=== PATIENT | female | born 1995 | race Caucasian/White ===

== ENCOUNTER 2017-11-11 15:25 | Observation (INO) | payer OTHER ==
--- NOTE | 2017-11-11 19:40 | PCM.SN ---
- Free Text/Narrative Note: 193 S: Patient is a 22 y/o at 37 1/7 wks who presents for further monitoring. Was seen in clinic and reported contractions starting about 2 hours prior. Moderate in intensity. Made drive up difficult. In clinic was 2-3 cm dilated. Currently on L&D and still reports contractions as same frequency/intensity. O: Gen: NAD Ab: Soft, non tender Ext: No edema FHT: 135, moderate variability, + accelerations, no decelerations - negative spontaneous stress test TOCO: q2 A/P: Patient with frequent contractions, but stable SVE over several exams. Lives 1.5 hours away. Gave Rx for ambien and will discharge to local hotel. Will follow up in clinic tomorrow. Likely prodromal labor. Yaneth Goel
== END 2017-11-11 19:45 | disposition home or self-care (01) ==
LOC: JD.OBCHECK 15:25 → JD.OB 15:27 → JD.OBCHECK 17:28
PROVIDERS: ADMIT Obstetrics & Gynecology; ATTEND Obstetrics & Gynecology
DX: O47.03 False labor before 37 completed weeks of gestation, third trimester (principal); Z3A.37 37 weeks gestation of pregnancy; Z88.0 Allergy status to penicillin; Z88.1 Allergy status to other antibiotic agents; Z91.030 Bee allergy status
CPT/HCPCS: 59025

== ENCOUNTER 2017-11-12 09:06 | Inpatient (IN) | payer OTHER ==
[2017-11-12] MEDS ORDERED: Nalbuphine 20 MG/ML 1 ML Syringe IVPUSH PRN (09:15)
[2017-11-12] MEDS ORDERED: Oxytocin/Lactated Ringers 10 UNIT/1,000 ML BAG IV SCH (09:15)
[2017-11-12] MEDS ORDERED: Ondansetron 4 MG/2 ML SDV IVPUSH PRN ×2 (09:15→14:08)
[2017-11-12] MEDS ORDERED: Sodium Chloride 0.9% 10 ML Syringe FLUSH PRN (09:15)
--- NOTE | 2017-11-12 09:17 | PCM.LDHP ---
L&D History of Present Illness - General Date of Service: 11/12/17 Admit Problem/Dx: Patient Status Order with Admit Dx/Problem 11/12/17 09:16 Patient Status [ADT] Routine Admission Diagnosis/Problem Admission Diagnosis/Problem Normal labor Source of Information: Patient History Limitations: Reports: No Limitations - History of Present Illness Introduction:: Patient is a 22 y/o at 37 2/7 wks who presents in labor. Was seen in L&D last night and sent home in early labor. Came into clinic today with cervical change noted. - Related Data Allergies/Adverse Reactions: Allergies Allergy/AdvReac Type Severity Reaction Status Date / Time amoxicillin Allergy Severe Anaphylactic Verified 11/04/17 15:49 Shock azithromycin Allergy Severe Anaphylactic Verified 11/04/17 15:49 Shock cefpodoxime [From Vantin] Allergy Severe Anaphylactic Verified 11/04/17 15:49 Shock clindamycin Allergy Severe Anaphylactic Verified 11/04/17 15:49 Shock Penicillins Allergy Severe Anaphylactic Verified 11/04/17 15:49 Shock venom-honey bee Allergy Severe Anaphylactic Verified 11/04/17 15:49 Shock Latex, Natural Rubber Allergy Itching Verified 11/12/17 11:05 Home Medications: Home Meds EPINEPHrine [Epipen] 0.3 mg IM ASDIRECTED PRN 11/12/17 [History] UJO156/Iron Fumarate/FA/DSS [ 19 Tablet] 1 each PO DAILY 11/12/17 [ History] Past Medical History - Past Surgical History HEENT Surgical History: Reports: Oral Surgery (wisdom tooth) Social & Family History - Tobacco Use Smoking Status *Q: Never Smoker - Alcohol Use Alcohol Use History: No - Recreational Drug Use Recreational Drug Use: No Drug Use in Last 12 Months: No H&P Review of Systems - Review of Systems: Review Of Systems: See Below General: Reports: No Symptoms Pulmonary: Reports: No Symptoms Cardiovascular: Reports: No Symptoms Gastrointestinal: Reports: Abdominal Pain Genitourinary: Reports: No Symptoms Musculoskeletal: Reports: No Symptoms Neurological: Reports: No Symptoms L&D Exam - Exam Exam: See Below - OB Specific Contraction Intensity: Moderate Movement: Active Heart Tones: Present Heart Tones per Min: 140 Heart Rate (FHR) Variability: Moderate (6-25 bmp) Presentation: Vertex - Mcelroy Score Mcelroy Score Cervix Position: Midposition Mcelroy Score Consistency: Soft Mcelroy Score Effacement: >80% Mcelroy Score Dilation: 3-4 cm Mcelroy Score 's Station: -1 ,0 Mcelroy Score Total: 10 - Exam General: Alert, Oriented, Cooperative Lungs: Clear to Auscultation, Normal Respiratory Effort Cardiovascular: Regular Rate, Regular Rhythm GI/Abdominal Exam: Soft, Non-Tender Genitourinary: Normal external exam Extremities: Normal Inspection Skin: Warm, Dry, Intact - Patient Data Result Diagrams: 11/12/17 09:30 - Problem List (1) 37 weeks gestation of SNOMED Code(s): 00894107 ICD Code: Z3A.37 - 37 WEEKS GESTATION OF Status: Acute Current Visit: Yes (2) Normal labor SNOMED Code(s): 32581895 ICD Code: O80 - ENCOUNTER FOR FULL-TERM UNCOMPLICATED DELIVERY; Z37.9 - OUTCOME OF DELIVERY, UNSPECIFIED Status: Acute Current Visit: Yes (3) Chorioamnionitis SNOMED Code(s): 42589859 ICD Code: O41.1290 - CHORIOAMNIONITIS, UNSP TRIMESTER, NOT APPLICABLE OR UNSP Status: Acute Current Visit: Yes Qualifiers: Fetus number: single or unspecified fetus Trimester: third trimester Qualified Code(s): O41.1230 - Chorioamnionitis, third trimester, not applicable or unspecified Problem List Initiated/Reviewed/Updated: Yes Orders Last 24hrs: Active Orders 24 hr Category Date Time Status Patient Status [ADT] Routine ADT 11/12/17 09:16 Ordered Activity as Tolerated [RC] PFP Care 11/12/17 09:16 Ordered Communication Order [RC] ASDIRECTED Care 11/12/17 09:16 Ordered Heart Tones [RC] ASDIRECTED Care 11/12/17 09:16 Ordered Non Stress Test [RC] PER UNIT ROUTINE Care 11/12/17 09:16 Ordered Notify Provider [RC] PFP Care 11/12/17 09:16 Ordered Notify Provider [RC] PRN Care 11/12/17 09:16 Ordered Peripheral IV Care [RC] . DIRECTED Care 11/12/17 09:16 Ordered Vital Signs [RC] PER UNIT ROUTINE Care 11/12/17 09:15 Ordered Regular Diet [DIET] Diet 11/12/17 Breakfast Ordered CBC W/O DIFF,HEMOGRAM [HEME] Routine Lab 11/12/17 09:15 Ordered FIBRINOGEN [COAG] Routine Lab 11/12/17 09:15 Ordered INR,PT,PROTHROMBIN TIME [COAG] Routine Lab 11/12/17 09:15 Ordered PTT,PARTIAL THROMBOPLSTIN TIME [COAG] Routine Lab 11/12/17 09:15 Ordered RAPID PLASMA REAGIN,RPR [CHEM] Routine Lab 11/12/17 09:15 Ordered TYPE AND SCREEN [BBK] Routine Lab 11/12/17 09:15 Ordered Lactated Ringers [Ringers, Lactated] 1,000 ml Med 11/12/17 09:15 Ordered IV ASDIRECTED Nalbuphine [Nubain] Med 11/12/17 09:15 Ordered 10 mg IVPUSH Q2H PRN Ondansetron [Zofran] Med 11/12/17 09:15 Ordered 4 mg IVPUSH Q4H PRN Oxytocin/Lactated Ringers [Pitocin in LR 10 Units/1,000 Med 11/12/17 09:15 Ordered ML] 10 unit in 1,000 ml IV .CONTINUOUS Sodium Chloride 0.9% [Saline Flush] Med 11/12/17 09:15 Ordered 10 ml FLUSH ASDIRECTED PRN Electronic Heart Tones Ext w TOCO [WOMSER] Oth 11/12/17 09:16 Ordered Routine Electronic Heart Tones Internal [WOMSER] Per Unit Oth 11/12/17 09:16 Ordered Routine Peripheral IV Insertion Adult [OM.PC] Routine Oth 11/12/17 09:16 Ordered Resuscitation Status Routine Resus Stat 11/12/17 09:15 Ordered Assessment/Plan Comment:: 22 y/o at 37 2/7 wks presents in labor * CBC, RPR, T&S * GBS negative, no need for antibiotics * Pain management per patient preference * Anticipate
--- NOTE | 2017-11-12 11:58 | PCM.PNLD ---
Labor Progress Note - VS & Meds Vital Signs: Last Vital Signs Temp 36.8 C 11/12/17 09:15 Pulse 91 11/12/17 09:15 Resp 16 11/12/17 09:15 BP 110/71 11/12/17 09:15 Pulse Ox 100 11/12/17 09:15 Active Medications: Current Medications Lactated Ringer's (Ringers, Lactated) 1,000 mls @ 100 mls/hr IV ASDIRECTED AGGIE Oxytocin/Lactated Ringer's (Pitocin In Lr 10 Units/1,000 Ml) 10 unit in 1,000 mls @ 500 mls/hr IV .CONTINUOUS AGGIE Nalbuphine HCl (Nubain) 10 mg IVPUSH Q2H PRN PRN Reason: pain Ondansetron HCl (Zofran) 4 mg IVPUSH Q4H PRN PRN Reason: Nausea/Vomiting Sodium Chloride (Saline Flush) 10 ml FLUSH ASDIRECTED PRN PRN Reason: Keep Vein Open - Uterine Contractions Uterine Monitoring Mode: External [place] Contraction Intensity: Moderate Uterine Resting Tone: Soft - Monitoring Monitor Mode: External Ultrasound Heart Rate (FHR) Baseline: 150 Heart Rate (FHR) Variability: Moderate (6-25 bmp) Accelerations: Present, 15x15 Decelerations: None Strip Review: Category I - Vaginal Exam Dilation (cm): 4 Effacement (Percent): 80 Station: 0 Cervical Position: Midposition - Labor Progress (Free Text) Labor Progress: Doing well. Contractions stable as far as degree of discomfort. AROM performed. Continue present management
[2017-11-12] MEDS: Lactated Ringers 1,000 ML IV SCH ×4 (13:54→17:04)
[2017-11-12] MEDS ORDERED: fentaNYL 100 MCG/2 ML SDV EPIDUR PRN (14:08)
[2017-11-12] MEDS ORDERED: diphenhydrAMINE 50 MG/ML SDV IVPUSH PRN (14:08)
[2017-11-12] MEDS ORDERED: ePHEDrine 50 MG/ML SDV IVPUSH PRN (14:08)
--- NOTE | 2017-11-12 14:10 | PCM.PREANE ---
Preanesthetic Assessment - Anesthesia/Transfusion/Family Hx Anesthesia History: Prior Anesthesia Without Reaction Family History of Anesthesia Reaction: No Transfusion History: No Prior Transfusion(s) Intubation History: Unknown - Review of Systems Pulmonary: Cough Cardiovascular: No Symptoms Gastrointestinal: No Symptoms (GERD) Neurological: Headache (Migraines) Other: Reports: Sinus Problem (sinus congestion) - Physical Assessment NPO Status Date: 11/12/17 NPO Status Time: 14:30 Pulse: 91 O2 Sat by Pulse Oximetry: 100 Respiratory Rate: 16 Blood Pressure: 110/71 Temperature: 2.7 C Vital Signs: Last Vital Signs Temp 36.8 C 11/12/17 09:15 Pulse 91 11/12/17 09:15 Resp 16 11/12/17 09:15 BP 110/71 11/12/17 09:15 Pulse Ox 100 11/12/17 09:15 Height: 1.63 m Weight: 65.771 kg ASA Class: 2 Mental Status: Alert & Oriented x3 Airway Class: Mallampati = 2 Dentition: Reports: Normal Dentition, Caries Thyro-Mental Finger Breadths: 3 Mouth Opening Finger Breadths: 3 ROM/Head Extension: Full Lungs: Clear to Auscultation, Normal Respiratory Effort Cardiovascular: Regular Rate, Regular Rhythm, No Murmurs - Lab Values: Laboratory Last Values WBC 13.73 K/mm3 (3.98-10.04) H 11/12/17 09:30 RBC 4.12 M/mm3 (3.98-5.22) 11/12/17 09:30 Hgb 12.9 gm/L (11.2-15.7) 11/12/17 09:30 Hct 38.1 % (34.1-44.9) 11/12/17 09:30 MCV 92.5 fl (79.4-94.8) 11/12/17 09:30 MCH 31.3 pg (25.6-32.2) 11/12/17 09:30 MCHC 33.9 g/dl (32.2-35.5) 11/12/17 09:30 RDW Std Deviation 41.0 fL (36.4-46.3) 11/12/17 09:30 Plt Count 223 K/mm3 (182-369) 11/12/17 09:30 MPV 11.0 fl (9.4-12.3) 11/12/17 09:30 PT 10.0 SECONDS (9.5-12.1) 11/12/17 09:30 INR < 0.93 11/12/17 09:30 APTT 27 SECONDS (24-31) 11/12/17 09:30 Fibrinogen 561 mg/dL (187-446) H 11/12/17 09:30 RPR Non-reactive (NONREACTIVE) 11/12/17 09:30 Blood Type A POSITIVE 11/12/17 09:30 Gel Antibody Screen Negative 11/12/17 09:30 Above labs reviewed and noted and within acceptable ranges to proceed with epidural. - Allergies Allergies/Adverse Reactions: Allergies Allergy/AdvReac Type Severity Reaction Status Date / Time amoxicillin Allergy Severe Anaphylactic Verified 11/04/17 15:49 Shock azithromycin Allergy Severe Anaphylactic Verified 11/04/17 15:49 Shock cefpodoxime [From Vantin] Allergy Severe Anaphylactic Verified 11/04/17 15:49 Shock clindamycin Allergy Severe Anaphylactic Verified 11/04/17 15:49 Shock Penicillins Allergy Severe Anaphylactic Verified 11/04/17 15:49 Shock venom-honey bee Allergy Severe Anaphylactic Verified 11/04/17 15:49 Shock Latex, Natural Rubber Allergy Itching Verified 11/12/17 11:05 - Anesthesia Plan Pre-Op Medication Ordered: None - Acknowledgements Anesthesia Type Planned: Epidural Pt an Appropriate Candidate for the Planned Anesthesia: Yes Alternatives and Risks of Anesthesia Discussed w Pt/Guardian: Yes Pt/Guardian Understands and Agrees with Anesthesia Plan: Yes PreAnesthesia Questionnaire - Past Health History Medical/Surgical History: Denies Medical/Surgical History - Past Surgical History HEENT Surgical History: Reports: Oral Surgery Other HEENT Surgeries/Procedures: wisdom teeth extraction - SUBSTANCE USE Smoking Status *Q: Never Smoker Tobacco Use Within Last Twelve Months: No Second Hand Smoke Exposure: No Recreational Drug Use History: No - HOME MEDS Home Medications: Home Meds EPINEPHrine [Epipen] 0.3 mg IM ASDIRECTED PRN 11/12/17 [History] [id number]/Iron Fumarate/FA/DSS [ 19 Tablet] 1 each PO DAILY 11/12/17 [ History] - CURRENT (IN HOUSE) MEDS Current Meds: Current Medications Diphenhydramine HCl (Benadryl) 25 mg IVPUSH Q6H PRN PRN Reason: pruritis Ephedrine Sulfate (Ephedrine Sulfate) 5 mg IVPUSH ASDIRECTED PRN PRN Reason: Hypotension Fentanyl (Sublimaze) 100 mcg EPIDUR Q3H PRN PRN Reason: Pain Fentanyl/Bupivacaine HCl (Fentanyl/Bupivacaine/Ns 2 Mcg-0.125% 100 Ml) 100 ml EPIDUR ASDIRECTED AGGIE Lactated Ringer's (Ringers, Lactated) 1,000 mls @ 100 mls/hr IV ASDIRECTED [facility] Last Admin: 11/12/17 13:54 Dose: 999 mls/hr Oxytocin/Lactated Ringer's (Pitocin In Lr 10 Units/1,000 Ml) 10 unit in 1,000 mls @ 500 mls/hr IV .CONTINUOUS [facility] Nalbuphine HCl (Nubain) 10 mg IVPUSH Q2H PRN PRN Reason: pain Ondansetron HCl (Zofran) 4 mg IVPUSH Q4H PRN PRN Reason: Nausea/Vomiting Ondansetron HCl (Zofran) 4 mg IVPUSH ONETIME PRN PRN Reason: Nausea/Vomiting Sodium Chloride (Saline Flush) 10 ml FLUSH ASDIRECTED PRN PRN Reason: Keep Vein Open
[2017-11-12] MEDS ORDERED: fentaNYL 100 MCG/2 ML SDV ONE (14:13)
[2017-11-12] MEDS ORDERED: Bupivacaine/fentaNYL/NS 100 ML Bag EPIDUR SCH (14:15)
--- NOTE | 2017-11-12 16:54 | PCM.PNLD ---
Labor Progress Note - VS & Meds Vital Signs: Last Vital Signs Temp 2.7 C L 11/12/17 14:29 Pulse 91 11/12/17 14:29 Resp 16 11/12/17 14:29 BP 110/71 11/12/17 14:29 Pulse Ox 100 11/12/17 14:29 Active Medications: Current Medications Diphenhydramine HCl (Benadryl) 25 mg IVPUSH Q6H PRN PRN Reason: pruritis Ephedrine Sulfate (Ephedrine Sulfate) 5 mg IVPUSH ASDIRECTED PRN PRN Reason: Hypotension Fentanyl (Sublimaze) 100 mcg EPIDUR Q3H PRN PRN Reason: Pain Last Admin: 11/12/17 14:23 Dose: 100 mcg Fentanyl/Bupivacaine HCl (Fentanyl/Bupivacaine/Ns 2 Mcg-0.125% 100 Ml) 100 ml EPIDUR ASDIRECTED AGGIE Last Admin: 11/12/17 14:23 Dose: 100 ml Lactated Ringer's (Ringers, Lactated) 1,000 mls @ 100 mls/hr IV ASDIRECTED [facility] Last Admin: 11/12/17 15:14 Dose: 999 mls/hr Oxytocin/Lactated Ringer's (Pitocin In Lr 10 Units/1,000 Ml) 10 unit in 1,000 mls @ 500 mls/hr IV .CONTINUOUS [facility] Nalbuphine HCl (Nubain) 10 mg IVPUSH Q2H PRN PRN Reason: pain Ondansetron HCl (Zofran) 4 mg IVPUSH Q4H PRN PRN Reason: Nausea/Vomiting Ondansetron HCl (Zofran) 4 mg IVPUSH ONETIME PRN PRN Reason: Nausea/Vomiting Sodium Chloride (Saline Flush) 10 ml FLUSH ASDIRECTED PRN PRN Reason: Keep Vein Open Discontinued Medications Fentanyl (Sublimaze) Confirm Administered Dose 100 mcg .ROUTE .STK-MED ONE Stop: 11/12/17 14:14 - Uterine Contractions Uterine Monitoring Mode: External [place] Contraction Intensity: Moderate Uterine Resting Tone: Soft - Monitoring Monitor Mode: External Ultrasound Heart Rate (FHR) Baseline: 135 Heart Rate (FHR) Variability: Moderate (6-25 bmp) Accelerations: Present, 15x15 Decelerations: Variable Strip Review: Category II - Vaginal Exam Dilation (cm): 5-6 Effacement (Percent): 80 Station: 1 Cervical Position: Anterior - Labor Progress (Free Text) Labor Progress: Doing well. Comfortable with epidural. Nursing thought patient was 4-5 at 1500. Now 5-6. Contractions are q3 minutes. IUPC placed to aid in monitoring contractions.
[2017-11-12] MEDS ORDERED: Acetaminophen 325 MG Tab PO ONE (19:41)
[2017-11-12] MEDS ORDERED: SODIUM CHLORIDE 0.9% IV ONE (19:49)
[2017-11-12] MEDS ORDERED: GENTAMICIN IV ONE (19:49)
[2017-11-12] MEDS ORDERED: Sodium Chloride 0.9% 100 ML ONE (19:52)
[2017-11-12] MEDS ORDERED: Gentamicin 40 MG/ML 2 ML Vial ONE (19:52)
[2017-11-12] MEDS ORDERED: Water For Injection, Sterile 10 ML SDV ONE ×2 (20:26→20:28)
--- NOTE | 2017-11-12 21:19 | PCM.DEL ---
L & D Note - General Info Date of Service: 11/12/17 - Delivery Note Labor: Augmented by ARM Delivery Outcome: Livebirth Delivery Method: Spontaneous Vaginal Delivery-Single Infant Delivery Mode: Vacuum Extraction Presentation: Right Occiput Anterior (KEIRY) Nuchal Cord: None Anesthesia Type: Epidural Amniotic Fluid Description: Clear Episiotomy Type: None Laceration: 2nd Degree, Periurethral Suture type: Vicryl Suture size: 2-0 Placenta: Intact, Spontaneous Cord: 3 Vessels Estimated Blood Loss: 300 Resuscitation Needed: Yes [place]: Bulb Syringe, Stimulated, Warmed, [place] Used, Warmer Used Score 1 min: 8 Score 5 min: 9 Delivery Comments (Free Text/Narrative):: The patient was found to be complete and began pushing. During this time frame she developed a fever and tachycardia consistent with chorioamnionitis. She was started on Gentamicin and Vancomycin for this concern. With pushing fetus and with deceleration into the 80's from 180. Given concern for compromise the decision was made to proceed with vacuum assisted vaginal delivery. The mushroom cup was placed without difficulty . Subsequent vacuum assisted vaginal delivery with pushing. Total pressure applied 550 mmHg for less than 20 seconds. Total pop offs 0. Suction was removed following delivery of the head. No nuchal cord. The remainder of the infant delivered without difficulty. The umbilical cord was clamped and cut and the was placed on maternal abdomen. Placenta allowed time to separate and expelled intact. Inspection of the perineum following delivery with a 2nd degree perineal laceration which was repaired with a 2-0 vicryl in the typical fashion . There was also a left sided periurethral tear which was repaired with a 3-0 vicryl in an interrupted fashion. Vacuum Extractor Progress Note - Alternative Labor Strategies Considered Alternative Labor Strategies Considered:: Reports: Yes Strategies Considered:: Reports: Contraction Intensity Adequate Indications Considered:: Reports: Yes Indications:: Reports: Suspicion of Immediate or Potential Compromise Time Out:: Reports: Yes - Patient Prepared Patient Prepared:: Reports: Yes Informed Consent:: Reports: Verbal Risks: Reports: Yes Risks Include:: Reports: Laceration, Shoulder Dystocia, Maternal Injury Anesthesia/Analgesia Adequate:: Reports: Yes - Probability of Success High Probability of Success:: Reports: Yes Weight Estimated:: Reports: AGA Patient Diabetic:: Reports: No Pelvis Adequate:: Reports: Yes Asynclitic:: Reports: No - Application Time Maximum Application Time & Number of Pop-Offs Predetermined:: Reports: Yes Maximum Pressure Maintained in [place] (cm Hg):: 550 Total Application Time (min): *max=20min: 1 (< 20 seconds) Number of Times Cup Disengaged:: 0 Type of Vacuum Used:: Reports: Cup: Mushroom type Vacuum Extraction: Successful - Exit Strategy Exit strategy available:: Reports: Yes and resuscitation teams readily available:: Reports: Yes - General Info Date of Service: 11/13/17 - Patient Data Vitals - Most Recent: Last Vital Signs Temp 38.3 C H 11/12/17 20:07 Pulse 91 11/12/17 14:29 Resp 16 11/12/17 14:29 BP 110/71 11/12/17 14:29 Pulse Ox 100 11/12/17 14:29 Weight - Most Recent: 65.771 kg I&O - Last 24 Hours: Intake & Output 11/12/17 11/12/17 11/12/17 06:59 14:59 22:59 Intake Total 240 4000 Output Total 1300 Balance 240 2700 Lab Results Last 24 Hours: Laboratory Results - last 24 hr 11/12/17 11/12/17 11/12/17 Range/Units 09:30 09:30 09:30 WBC 13.73 H (3.98-10.04) K/mm3 RBC 4.12 (3.98-5.22) M/mm3 Hgb 12.9 (11.2-15.7) gm/L Hct 38.1 (34.1-44.9) % MCV 92.5 (79.4-94.8) fl MCH 31.3 (25.6-32.2) pg MCHC 33.9 (32.2-35.5) g/dl RDW Std Deviation 41.0 (36.4-46.3) fL Plt Count 223 (182-369) K/mm3 MPV 11.0 (9.4-12.3) fl PT 10.0 (9.5-12.1) SECONDS INR < 0.93 APTT 27 (24-31) SECONDS Fibrinogen 561 H (187-446) mg/dL RPR Non-reactive (NONREACTIVE) Blood Type Gel Antibody Screen 11/12/17 Range/Units 09:30 WBC (3.98-10.04) K/mm3 RBC (3.98-5.22) M/mm3 Hgb (11.2-15.7) gm/L Hct (34.1-44.9) % MCV (79.4-94.8) fl MCH (25.6-32.2) pg MCHC (32.2-35.5) g/dl RDW Std Deviation (36.4-46.3) fL Plt Count (182-369) K/mm3 MPV (9.4-12.3) fl PT (9.5-12.1) SECONDS INR APTT (24-31) SECONDS Fibrinogen (187-446) mg/dL RPR (NONREACTIVE) Blood Type A POSITIVE Gel Antibody Screen Negative Med Orders - Current: Current Medications Diphenhydramine HCl (Benadryl) 25 mg IVPUSH Q6H PRN PRN Reason: pruritis Ephedrine Sulfate (Ephedrine Sulfate) 5 mg IVPUSH ASDIRECTED PRN PRN Reason: Hypotension Fentanyl (Sublimaze) 100 mcg EPIDUR Q3H PRN PRN Reason: Pain Last Admin: 11/12/17 14:23 Dose: 100 mcg Fentanyl/Bupivacaine HCl (Fentanyl/Bupivacaine/Ns 2 Mcg-0.125% 100 Ml) 100 ml EPIDUR ASDIRECTED [facility] Last Admin: 11/12/17 14:23 Dose: 100 ml Lactated Ringer's (Ringers, Lactated) 1,000 mls @ 100 mls/hr IV ASDIRECTED [facility] Last Admin: 11/12/17 17:04 Dose: 500 mls/hr Oxytocin/Lactated Ringer's (Pitocin In Lr 10 Units/1,000 Ml) 10 unit in 1,000 mls @ 500 mls/hr IV .CONTINUOUS AGGIE Nalbuphine HCl (Nubain) 10 mg IVPUSH Q2H PRN PRN Reason: pain Ondansetron HCl (Zofran) 4 mg IVPUSH Q4H PRN PRN Reason: Nausea/Vomiting Ondansetron HCl (Zofran) 4 mg IVPUSH ONETIME PRN PRN Reason: Nausea/Vomiting Sodium Chloride (Saline Flush) 10 ml FLUSH ASDIRECTED PRN PRN Reason: Keep Vein Open Discontinued Medications Acetaminophen (Tylenol) 975 mg PO NOW ONE Stop: 11/12/17 19:42 Last Admin: 11/12/17 20:07 Dose: 975 mg Fentanyl (Sublimaze) Confirm Administered Dose 100 mcg .ROUTE .STK-MED ONE Stop: 11/12/17 14:14 Last Admin: 11/12/17 19:11 Dose: Not Given Gentamicin Sulfate (Gentamicin) Confirm Administered Dose 400 mg .ROUTE .STK- MED ONE Stop: 11/12/17 19:53 Last Admin: 11/12/17 20:09 Dose: Not Given Gentamicin Sulfate 325 mg/ (Sodium Chloride) 108.125 mls @ 200 mls/hr IV ONETIME ONE Stop: 11/12/17 20:18 Last Admin: 11/12/17 20:07 Dose: 200 mls/hr Vancomycin HCl 1 gm/ Sodium (Chloride) 250 mls @ 250 mls/hr IV ONETIME ONE Stop: 11/12/17 20:49 Last Admin: 11/12/17 20:43 Dose: 250 mls/hr Sodium Chloride (Normal Saline) Confirm Administered Dose 100 mls @ as directed .ROUTE .STK-MED ONE Stop: 11/12/17 19:53 Sterile Water (Sterile Water For Injection) Confirm Administered Dose 10 ml .ROUTE .STK-MED ONE Stop: 11/12/17 20:27 Sterile Water (Sterile Water For Injection) Confirm Administered Dose 10 ml .ROUTE .STK-MED ONE Stop: 11/12/17 20:29 - Problem List & Annotations (1) 37 weeks gestation of SNOMED Code(s): 31004715 Code(s): Z3A.37 - 37 WEEKS GESTATION OF Status: Acute Current Visit: Yes (2) Chorioamnionitis SNOMED Code(s): 59226287 Code(s): O41.1290 - CHORIOAMNIONITIS, UNSP TRIMESTER, NOT APPLICABLE OR UNSP Status: Acute Current Visit: Yes Qualifiers: Fetus number: single or unspecified fetus Trimester: third trimester Qualified Code(s): O41.1230 - Chorioamnionitis, third trimester, not applicable or unspecified (3) Normal labor SNOMED Code(s): 58802977 Code(s): O80 - ENCOUNTER FOR FULL-TERM UNCOMPLICATED DELIVERY; Z37.9 - OUTCOME OF DELIVERY, UNSPECIFIED Status: Acute Current Visit: Yes (4) Vacuum extraction, delivered, current hospitalization SNOMED Code(s): 058296215 Code(s): O66.5 - ATTEMPTED APPLICATION OF VACUUM EXTRACTOR AND FORCEPS Status: Acute Current Visit: Yes - Problem List Review Problem List Initiated/Reviewed/Updated: Yes - My Orders Last 24 Hours: My Active Orders 11/12/17 09:15 Vital Signs [RC] 09,15,21,03 Lactated Ringers [Ringers, Lactated] 1,000 ml IV ASDIRECTED Nalbuphine [Nubain] 10 mg IVPUSH Q2H PRN Ondansetron [Zofran] 4 mg IVPUSH Q4H PRN Oxytocin/Lactated Ringers [Pitocin in LR 10 Units/1,000 ML] 10 unit in 1,000 ml IV .CONTINUOUS Sodium Chloride 0.9% [Saline Flush] 10 ml FLUSH ASDIRECTED PRN Resuscitation Status Routine 11/12/17 09:16 Patient Status [ADT] Routine Activity as Tolerated [RC] PFP Communication Order [RC] ASDIRECTED Heart Tones [RC] ASDIRECTED Notify Provider [RC] PFP Notify Provider [RC] PRN Electronic Heart Tones Ext w TOCO [WOMSER] Routine Electronic Heart Tones Internal [WOMSER] Per Unit Routine Peripheral IV Insertion Adult [OM.PC] Routine 11/12/17 09:30 PATIENT RETYPE [BBK] Routine TYPE AND SCREEN [BBK] Routine 11/12/17 Breakfast Regular Diet [DIET] - Assessment Assessment:: 22 y/o PPD#0 from [facility] - Plan Plan:: * S/p Gent and Vanc in labor. No further antibiotics required * Routine cares * Encourage breast feeding * Discharge home in 2 days
[2017-11-12] MEDS ORDERED: Bupivacaine 0.25% 10 ML SDV ONE (22:00)
[2017-11-12] MEDS ORDERED: Lanolin 100% Cream 7 GM Tube TOP PRN (22:24)
[2017-11-12] MEDS ORDERED: Acetaminophen 325 MG Tab PO PRN (22:24)
[2017-11-12] MEDS ORDERED: Docusate Sodium 100 MG Cap PO PRN (22:24)
[2017-11-12] MEDS ORDERED: Witch Hazel Medicated Pads 100/Jar TOP PRN (22:24)
[2017-11-12] MEDS ORDERED: Benzocaine/Menthol 20%-0.5% Spray 56 GM Canister TOP PRN (22:24)
--- NOTE | 2017-11-13 07:26 | PCM.PNPP ---
- General Info Date of Service: 11/13/17 Functional Status: Reports: Pain Controlled, Tolerating Diet, Ambulating, Urinating - Review of Systems General: Reports: No Symptoms Pulmonary: Reports: No Symptoms Cardiovascular: Reports: No Symptoms Gastrointestinal: Reports: No Symptoms Genitourinary: Reports: No Symptoms Musculoskeletal: Reports: No Symptoms Neurological: Reports: No Symptoms - Patient Data Vital Signs - Most Recent: Last Vital Signs Temp 37.1 C 11/12/17 23:31 Pulse 74 11/12/17 23:31 Resp 16 11/12/17 23:31 BP 102/76 11/12/17 23:31 Pulse Ox 98 11/12/17 23:31 Weight - Most Recent: 65.771 kg I&O - Last 24 Hours: Intake & Output 11/12/17 11/13/17 11/13/17 22:59 06:59 14:59 Intake Total 4000 1350 Output Total 1650 Balance 2350 1350 Lab Results - Last 24 Hours: Laboratory Results - last 24 hr 11/12/17 11/12/17 11/12/17 Range/Units 09:30 09:30 09:30 WBC 13.73 H (3.98-10.04) K/mm3 RBC 4.12 (3.98-5.22) M/mm3 Hgb 12.9 (11.2-15.7) gm/L Hct 38.1 (34.1-44.9) % MCV 92.5 (79.4-94.8) fl MCH 31.3 (25.6-32.2) pg MCHC 33.9 (32.2-35.5) g/dl RDW Std Deviation 41.0 (36.4-46.3) fL Plt Count 223 (182-369) K/mm3 MPV 11.0 (9.4-12.3) fl PT 10.0 (9.5-12.1) SECONDS INR < 0.93 APTT 27 (24-31) SECONDS Fibrinogen 561 H (187-446) mg/dL RPR Non-reactive (NONREACTIVE) Blood Type Gel Antibody Screen 11/12/17 Range/Units 09:30 WBC (3.98-10.04) K/mm3 RBC (3.98-5.22) M/mm3 Hgb (11.2-15.7) gm/L Hct (34.1-44.9) % MCV (79.4-94.8) fl MCH (25.6-32.2) pg MCHC (32.2-35.5) g/dl RDW Std Deviation (36.4-46.3) fL Plt Count (182-369) K/mm3 MPV (9.4-12.3) fl PT (9.5-12.1) SECONDS INR APTT (24-31) SECONDS Fibrinogen (187-446) mg/dL RPR (NONREACTIVE) Blood Type A POSITIVE Gel Antibody Screen Negative Med Orders - Current: Current Medications Acetaminophen (Tylenol) 650 mg PO Q4H PRN PRN Reason: mild pain or fever Benzocaine/Menthol (Dermoplast Pain Relief [place]) 0 gm TOP ASDIRECTED PRN PRN Reason: Perineal Comfort Measure Docusate Sodium (Colace) 100 mg PO BID PRN PRN Reason: Constipation Emollient Ointment (Lansinoh Hpa) 0 gm TOP ASDIRECTED PRN PRN Reason: Sore Nipples Ibuprofen (Motrin) 600 mg PO Q6H PRN PRN Reason: Mild pain or fever Witch Beryl (Tucks) 1 pad TOP ASDIRECTED PRN PRN Reason: Hemorrhoid pain Discontinued Medications Acetaminophen (Tylenol) 975 mg PO NOW ONE Stop: 11/12/17 19:42 Last Admin: 11/12/17 20:07 Dose: 975 mg Diphenhydramine HCl (Benadryl) 25 mg IVPUSH Q6H PRN PRN Reason: pruritis Ephedrine Sulfate (Ephedrine Sulfate) 5 mg IVPUSH ASDIRECTED PRN PRN Reason: Hypotension Fentanyl (Sublimaze) 100 mcg EPIDUR Q3H PRN PRN Reason: Pain Last Admin: 11/12/17 14:23 Dose: 100 mcg Fentanyl (Sublimaze) Confirm Administered Dose 100 mcg .ROUTE .STK-MED ONE Stop: 11/12/17 14:14 Last Admin: 11/12/17 19:11 Dose: Not Given Fentanyl/Bupivacaine HCl (Fentanyl/Bupivacaine/Ns 2 Mcg-0.125% 100 Ml) 100 ml EPIDUR ASDIRECTED AGGIE Last Admin: 11/12/17 14:23 Dose: 100 ml Gentamicin Sulfate (Gentamicin) Confirm Administered Dose 400 mg .ROUTE .STK- MED ONE Stop: 11/12/17 19:53 Last Admin: 11/12/17 20:09 Dose: Not Given Lactated Ringer's (Ringers, Lactated) 1,000 mls @ 100 mls/hr IV ASDIRECTED AGGIE Last Admin: 11/12/17 17:04 Dose: 500 mls/hr Oxytocin/Lactated Ringer's (Pitocin In Lr 10 Units/1,000 Ml) 10 unit in 1,000 mls @ 500 mls/hr IV .CONTINUOUS AGGIE Last Admin: 11/12/17 20:57 Dose: 500 mls/hr Gentamicin Sulfate 325 mg/ (Sodium Chloride) 108.125 mls @ 200 mls/hr IV ONETIME ONE Stop: 11/12/17 20:18 Last Admin: 11/12/17 20:07 Dose: 200 mls/hr Vancomycin HCl 1 gm/ Sodium (Chloride) 250 mls @ 250 mls/hr IV ONETIME ONE Stop: 11/12/17 20:49 Last Admin: 11/12/17 20:43 Dose: 250 mls/hr Sodium Chloride (Normal Saline) Confirm Administered Dose 100 mls @ as directed .ROUTE .STK-MED ONE Stop: 11/12/17 19:53 Last Admin: 11/13/17 00:56 Dose: Not Given Nalbuphine HCl (Nubain) 10 mg IVPUSH Q2H PRN PRN Reason: pain Ondansetron HCl (Zofran) 4 mg IVPUSH Q4H PRN PRN Reason: Nausea/Vomiting Ondansetron HCl (Zofran) 4 mg IVPUSH ONETIME PRN PRN Reason: Nausea/Vomiting Sodium Chloride (Saline Flush) 10 ml FLUSH ASDIRECTED PRN PRN Reason: Keep Vein Open Sterile Water (Sterile Water For Injection) Confirm Administered Dose 10 ml .ROUTE .STK-MED ONE Stop: 11/12/17 20:27 Last Admin: 11/13/17 00:56 Dose: Not Given Sterile Water (Sterile Water For Injection) Confirm Administered Dose 10 ml .ROUTE .STK-MED ONE Stop: 11/12/17 20:29 Last Admin: 11/13/17 00:56 Dose: Not Given - Interaction Infant Disposition, : in Room with Family Infant Interaction: Holding Feeding: Breastfed ; Nursed Well Support Person: - Recovery Exam Fundal Tone: Firm Fundal Level: At Umbilicus Fundal Placement: Midline Lochia Amount: Small Lochia Color: Rubra/Red Perineum Description: Edematous Episiotomy/Laceration: Approximated Bladder Status: Voiding Urinary Elimination: Voided - Exam General: Alert, Oriented, Cooperative GI/Abdominal Exam: Soft, Non-Tender Extremities: Normal Inspection Skin: Warm, Dry, Intact - Problem List & Annotations (1) 37 weeks gestation of SNOMED Code(s): 51670545 Code(s): Z3A.37 - 37 WEEKS GESTATION OF Status: Acute Current Visit: Yes (2) Normal labor SNOMED Code(s): 79678187 Code(s): O80 - ENCOUNTER FOR FULL-TERM UNCOMPLICATED DELIVERY; Z37.9 - OUTCOME OF DELIVERY, UNSPECIFIED Status: Acute Current Visit: Yes (3) Chorioamnionitis SNOMED Code(s): 57296284 Code(s): O41.1290 - CHORIOAMNIONITIS, UNSP TRIMESTER, NOT APPLICABLE OR UNSP Status: Acute Current Visit: Yes Qualifiers: Fetus number: single or unspecified fetus Trimester: third trimester Qualified Code(s): O41.1230 - Chorioamnionitis, third trimester, not applicable or unspecified (4) Vacuum extraction, delivered, current hospitalization SNOMED Code(s): 679386708 Code(s): O66.5 - ATTEMPTED APPLICATION OF VACUUM EXTRACTOR AND FORCEPS Status: Acute Current Visit: Yes - Problem List Review Problem List Initiated/Reviewed/Updated: Yes - My Orders Last 24 Hours: My Active Orders 11/12/17 09:15 Resuscitation Status Routine 11/12/17 22:24 Activity as Tolerated [RC] PER UNIT ROUTINE Up ad Rosio [RC] ASDIRECTED Vital Signs [RC] 0900,0300,1500,2100 Acetaminophen [Tylenol] 650 mg PO Q4H PRN Benzocaine/Menthol [Dermoplast Pain Relief [place]] See Dose Instructions TOP ASDIRECTED PRN Docusate Sodium [Colace] 100 mg PO BID PRN Ibuprofen [Motrin] 600 mg PO Q6H PRN Lanolin [Lansinoh HPA] See Dose Instructions TOP ASDIRECTED PRN Witch Beryl [Tucks] 1 pad TOP ASDIRECTED PRN Assess Lochia [WOMSER] Per Unit Routine Assess Uterine Involution [WOMSER] Per Unit Routine Breast Pump [WOMSER] Per Unit Routine Heat Therapy [OM.PC] PRN Ice Therapy [OM.PC] Per Unit Routine Perineal Care [OM.PC] Per Unit Routine Peripheral IV Discontinue [OM.PC] Routine Sitz Bath [OM.PC] Per Unit Routine 11/12/17 Dinner Regular Diet [DIET] 11/13/17 22:24 Heat Therapy [OM.PC] PRN - Assessment Assessment:: 22 y/o PPD#1 from [facility] - Plan Plan:: * S/p Gent and Vanc in labor. Afebrile overnight. No other intervention * Routine cares * Encourage breast feeding * Discharge home in 1 day
--- NOTE | 2017-11-13 07:35 | PCM48HPAN ---
Post Anesthesia Note - EVALUATION WITHIN 48HRS OF ANESTHETIC Vital Signs in Normal Range: Yes Patient Participated in Evaluation: Yes Respiratory Function Stable: Yes Airway Patent: Yes Cardiovascular Function Stable: Yes Hydration Status Stable: Yes Pain Control Satisfactory: Yes Nausea and Vomiting Control Satisfactory: Yes Mental Status Recovered: Yes Pulse Rate: 74 Resp Rate: 16 Temperature: 37.1 C Blood Pressure: 102/76 - COMMENTS/OBSERVATIONS Free Text/Narrative:: no anesthesia complications noted
[2017-11-13] MEDS: Ibuprofen 600 MG Tab PO PRN ×2 (09:50→18:05)
--- NOTE | 2017-11-14 06:56 | PCM.PNPP ---
- General Info Date of Service: 11/14/17 Functional Status: Reports: Pain Controlled, Tolerating Diet, Ambulating, Urinating - Review of Systems General: Reports: No Symptoms Pulmonary: Reports: No Symptoms Cardiovascular: Reports: No Symptoms Gastrointestinal: Reports: No Symptoms Genitourinary: Reports: No Symptoms Musculoskeletal: Reports: No Symptoms Neurological: Reports: No Symptoms - Patient Data Vital Signs - Most Recent: Last Vital Signs Temp 36.9 C 11/14/17 03:05 Pulse 71 11/14/17 03:05 Resp 16 11/14/17 03:05 BP 98/65 11/14/17 03:05 Pulse Ox 99 11/14/17 03:05 Weight - Most Recent: 65.771 kg I&O - Last 24 Hours: Intake & Output 11/13/17 11/13/17 11/14/17 14:59 22:59 06:59 Intake Total 120 Balance 120 Med Orders - Current: Current Medications Acetaminophen (Tylenol) 650 mg PO Q4H PRN PRN Reason: mild pain or fever Benzocaine/Menthol (Dermoplast Pain Relief [place]) 0 gm TOP ASDIRECTED PRN PRN Reason: Perineal Comfort Measure Last Admin: 11/13/17 09:51 Dose: 1 spray Docusate Sodium (Colace) 100 mg PO BID PRN PRN Reason: Constipation Emollient Ointment (Lansinoh Hpa) 0 gm TOP ASDIRECTED PRN PRN Reason: Sore Nipples Ibuprofen (Motrin) 600 mg PO Q6H PRN PRN Reason: Mild pain or fever Last Admin: 11/13/17 18:05 Dose: 600 mg Witch Beryl (Tucks) 1 pad TOP ASDIRECTED PRN PRN Reason: Hemorrhoid pain Last Admin: 11/13/17 09:51 Dose: 1 pad Discontinued Medications Acetaminophen (Tylenol) 975 mg PO NOW ONE Stop: 11/12/17 19:42 Last Admin: 11/12/17 20:07 Dose: 975 mg Bupivacaine HCl (Sensorcaine-Mpf 0.25%) 10 ml .ROUTE .STK-MED ONE Stop: 11/12/17 22:01 Diphenhydramine HCl (Benadryl) 25 mg IVPUSH Q6H PRN PRN Reason: pruritis Ephedrine Sulfate (Ephedrine Sulfate) 5 mg IVPUSH ASDIRECTED PRN PRN Reason: Hypotension Fentanyl (Sublimaze) 100 mcg EPIDUR Q3H PRN PRN Reason: Pain Last Admin: 11/12/17 14:23 Dose: 100 mcg Fentanyl (Sublimaze) Confirm Administered Dose 100 mcg .ROUTE .STK-MED ONE Stop: 11/12/17 14:14 Last Admin: 11/12/17 19:11 Dose: Not Given Fentanyl/Bupivacaine HCl (Fentanyl/Bupivacaine/Ns 2 Mcg-0.125% 100 Ml) 100 ml EPIDUR ASDIRECTED [facility] Last Admin: 11/12/17 14:23 Dose: 100 ml Gentamicin Sulfate (Gentamicin) Confirm Administered Dose 400 mg .ROUTE .STK- MED ONE Stop: 11/12/17 19:53 Last Admin: 11/12/17 20:09 Dose: Not Given Lactated Ringer's (Ringers, Lactated) 1,000 mls @ 100 mls/hr IV ASDIRECTED [facility] Last Admin: 11/12/17 17:04 Dose: 500 mls/hr Oxytocin/Lactated Ringer's (Pitocin In Lr 10 Units/1,000 Ml) 10 unit in 1,000 mls @ 500 mls/hr IV .CONTINUOUS [facility] Last Admin: 11/12/17 20:57 Dose: 500 mls/hr Gentamicin Sulfate 325 mg/ (Sodium Chloride) 108.125 mls @ 200 mls/hr IV ONETIME ONE Stop: 11/12/17 20:18 Last Admin: 11/12/17 20:07 Dose: 200 mls/hr Vancomycin HCl 1 gm/ Sodium (Chloride) 250 mls @ 250 mls/hr IV ONETIME ONE Stop: 11/12/17 20:49 Last Admin: 11/12/17 20:43 Dose: 250 mls/hr Sodium Chloride (Normal Saline) Confirm Administered Dose 100 mls @ as directed .ROUTE .STK-MED ONE Stop: 11/12/17 19:53 Last Admin: 11/13/17 00:56 Dose: Not Given Nalbuphine HCl (Nubain) 10 mg IVPUSH Q2H PRN PRN Reason: pain Ondansetron HCl (Zofran) 4 mg IVPUSH Q4H PRN PRN Reason: Nausea/Vomiting Ondansetron HCl (Zofran) 4 mg IVPUSH ONETIME PRN PRN Reason: Nausea/Vomiting Sodium Chloride (Saline Flush) 10 ml FLUSH ASDIRECTED PRN PRN Reason: Keep Vein Open Sterile Water (Sterile Water For Injection) Confirm Administered Dose 10 ml .ROUTE .STK-MED ONE Stop: 11/12/17 20:27 Last Admin: 11/13/17 00:56 Dose: Not Given Sterile Water (Sterile Water For Injection) Confirm Administered Dose 10 ml .ROUTE .STK-MED ONE Stop: 11/12/17 20:29 Last Admin: 11/13/17 00:56 Dose: Not Given - Infant Interaction Infant Disposition, : [place] in Room with Family Interaction: Holding Infant Infant Feeding: Breastfed ; Nursed Well Support Person: - Recovery Exam Fundal Tone: Firm Fundal Level: 1 Fingerbreadths Below Umbilicus Fundal Placement: Midline Lochia Amount: Scant Lochia Color: Rubra/Red Perineum Description: Edematous Episiotomy/Laceration: Approximated Bladder Status: Voiding Urinary Elimination: Voided - Exam General: Alert, Oriented, Cooperative GI/Abdominal Exam: Soft, Non-Tender Extremities: Normal Inspection Skin: Warm, Dry, Intact - Problem List & Annotations (1) 37 weeks gestation of SNOMED Code(s): 34721010 Code(s): Z3A.37 - 37 WEEKS GESTATION OF Status: Acute Current Visit: Yes (2) Normal labor SNOMED Code(s): 40068571 Code(s): O80 - ENCOUNTER FOR FULL-TERM UNCOMPLICATED DELIVERY; Z37.9 - OUTCOME OF DELIVERY, UNSPECIFIED Status: Acute Current Visit: Yes (3) Chorioamnionitis SNOMED Code(s): 99810103 Code(s): O41.1290 - CHORIOAMNIONITIS, UNSP TRIMESTER, NOT APPLICABLE OR UNSP Status: Acute Current Visit: Yes Qualifiers: Fetus number: single or unspecified fetus Trimester: third trimester Qualified Code(s): O41.1230 - Chorioamnionitis, third trimester, not applicable or unspecified (4) Vacuum extraction, delivered, current hospitalization SNOMED Code(s): 334047519 Code(s): O66.5 - ATTEMPTED APPLICATION OF VACUUM EXTRACTOR AND FORCEPS Status: Acute Current Visit: Yes - Problem List Review Problem List Initiated/Reviewed/Updated: Yes - My Orders Last 24 Hours: My Active Orders 11/13/17 22:24 Heat Therapy [OM.PC] PRN - Assessment Assessment:: 22 y/o PPD#2 from [facility] - Plan Plan:: * Routine cares * Encourage breast feeding * Discharge home today
--- NOTE | 2017-11-14 06:58 | PCM.DCSUM1 ---
Discharge Summary - Discharge Data Discharge Date: 11/14/17 Discharge Disposition: Home, Self-Care 01 Condition: Good - Discharge Diagnosis/Problem(s) (1) 37 weeks gestation of SNOMED Code(s): 38159847 ICD Code: Z3A.37 - 37 WEEKS GESTATION OF Status: Acute Current Visit: Yes (2) Normal labor SNOMED Code(s): 91256023 ICD Code: O80 - ENCOUNTER FOR FULL-TERM UNCOMPLICATED DELIVERY; Z37.9 - OUTCOME OF DELIVERY, UNSPECIFIED Status: Acute Current Visit: Yes (3) Chorioamnionitis SNOMED Code(s): 25643644 ICD Code: O41.1290 - CHORIOAMNIONITIS, UNSP TRIMESTER, NOT APPLICABLE OR UNSP Status: Acute Current Visit: Yes Qualifiers: Fetus number: single or unspecified fetus Trimester: third trimester Qualified Code(s): O41.1230 - Chorioamnionitis, third trimester, not applicable or unspecified (4) Vacuum extraction, delivered, current hospitalization SNOMED Code(s): 103890286 ICD Code: O66.5 - ATTEMPTED APPLICATION OF VACUUM EXTRACTOR AND FORCEPS Status: Acute Current Visit: Yes - Patient Summary/Data Complications: None Consults: None Recommended Follow-up Testing/Procedures: Follow up in 3-6 weeks for check Hospital Course: 22 y/o presented at 37 2/7 wks in labor. Progressed well, augmented with AROM. Did develop chorioamnionitis with pushing. Treated with Vanc and gentamicin given antibiotic allergies. She did have a brief application of a vacuum given bradycardia with pushing. She otherwise did well and was afebrile . She was discharged home on PPD#2 - Patient Instructions Diet: Regular Diet as Tolerated Activity: As Tolerated Activity, Other: Pelvic Rest for 6 weeks Driving: May Drive Today Showering/Bathing: May Shower Showering/Bathing, Other: May Bathe Notify Provider of: Fever, Increased Pain, Swelling and Redness, Drainage, Nausea and/or Vomiting - Discharge Plan *PRESCRIPTION DRUG MONITORING PROGRAM REVIEWED*: Not Applicable *COPY OF PRESCRIPTION DRUG MONITORING REPORT IN PATIENT ADRY: Not Applicable Home Medications: Home Meds EPINEPHrine [Epipen] 0.3 mg IM ASDIRECTED PRN 11/12/17 [History] HDZ660/Iron Fumarate/FA/DSS [ 19 Tablet] 1 each PO DAILY 11/12/17 [ History] Docusate Sodium [Colace] 100 mg PO BID PRN cap 11/14/17 [Rx] Ibuprofen [Motrin] 600 mg PO Q6H PRN tablet 11/14/17 [Rx] Referrals: Yaneth Goel MD [Physician] - (3-6 weeks for check ) - Discharge Summary/Plan Comment DC Time >30 min.: No - Patient Data Vitals - Most Recent: Last Vital Signs Temp 36.9 C 11/14/17 03:05 Pulse 71 11/14/17 03:05 Resp 16 11/14/17 03:05 BP 98/65 11/14/17 03:05 Pulse Ox 99 11/14/17 03:05 Weight - Most Recent: 65.771 kg I&O - Last 24 hours: Intake & Output 11/13/17 11/13/17 11/14/17 14:59 22:59 06:59 Intake Total 120 Balance 120 Med Orders - Current: Current Medications Acetaminophen (Tylenol) 650 mg PO Q4H PRN PRN Reason: mild pain or fever Benzocaine/Menthol (Dermoplast Pain Relief [place]) 0 gm TOP ASDIRECTED PRN PRN Reason: Perineal Comfort Measure Last Admin: 11/13/17 09:51 Dose: 1 spray Docusate Sodium (Colace) 100 mg PO BID PRN PRN Reason: Constipation Emollient Ointment (Lansinoh Hpa) 0 gm TOP ASDIRECTED PRN PRN Reason: Sore Nipples Ibuprofen (Motrin) 600 mg PO Q6H PRN PRN Reason: Mild pain or fever Last Admin: 11/13/17 18:05 Dose: 600 mg Witch Beryl (Tucks) 1 pad TOP ASDIRECTED PRN PRN Reason: Hemorrhoid pain Last Admin: 11/13/17 09:51 Dose: 1 pad Discontinued Medications Acetaminophen (Tylenol) 975 mg PO NOW ONE Stop: 11/12/17 19:42 Last Admin: 11/12/17 20:07 Dose: 975 mg Bupivacaine HCl (Sensorcaine-Mpf 0.25%) 10 ml .ROUTE .STK-MED ONE Stop: 11/12/17 22:01 Diphenhydramine HCl (Benadryl) 25 mg IVPUSH Q6H PRN PRN Reason: pruritis Ephedrine Sulfate (Ephedrine Sulfate) 5 mg IVPUSH ASDIRECTED PRN PRN Reason: Hypotension Fentanyl (Sublimaze) 100 mcg EPIDUR Q3H PRN PRN Reason: Pain Last Admin: 11/12/17 14:23 Dose: 100 mcg Fentanyl (Sublimaze) Confirm Administered Dose 100 mcg .ROUTE .STK-MED ONE Stop: 11/12/17 14:14 Last Admin: 11/12/17 19:11 Dose: Not Given Fentanyl/Bupivacaine HCl (Fentanyl/Bupivacaine/Ns 2 Mcg-0.125% 100 Ml) 100 ml EPIDUR ASDIRECTED AGGIE Last Admin: 11/12/17 14:23 Dose: 100 ml Gentamicin Sulfate (Gentamicin) Confirm Administered Dose 400 mg .ROUTE .STK- MED ONE Stop: 11/12/17 19:53 Last Admin: 11/12/17 20:09 Dose: Not Given Lactated Ringer's (Ringers, Lactated) 1,000 mls @ 100 mls/hr IV ASDIRECTED [facility] Last Admin: 11/12/17 17:04 Dose: 500 mls/hr Oxytocin/Lactated Ringer's (Pitocin In Lr 10 Units/1,000 Ml) 10 unit in 1,000 mls @ 500 mls/hr IV .CONTINUOUS [facility] Last Admin: 11/12/17 20:57 Dose: 500 mls/hr Gentamicin Sulfate 325 mg/ (Sodium Chloride) 108.125 mls @ 200 mls/hr IV ONETIME ONE Stop: 11/12/17 20:18 Last Admin: 11/12/17 20:07 Dose: 200 mls/hr Vancomycin HCl 1 gm/ Sodium (Chloride) 250 mls @ 250 mls/hr IV ONETIME ONE Stop: 11/12/17 20:49 Last Admin: 11/12/17 20:43 Dose: 250 mls/hr Sodium Chloride (Normal Saline) Confirm Administered Dose 100 mls @ as directed .ROUTE .STK-MED ONE Stop: 11/12/17 19:53 Last Admin: 11/13/17 00:56 Dose: Not Given Nalbuphine HCl (Nubain) 10 mg IVPUSH Q2H PRN PRN Reason: pain Ondansetron HCl (Zofran) 4 mg IVPUSH Q4H PRN PRN Reason: Nausea/Vomiting Ondansetron HCl (Zofran) 4 mg IVPUSH ONETIME PRN PRN Reason: Nausea/Vomiting Sodium Chloride (Saline Flush) 10 ml FLUSH ASDIRECTED PRN PRN Reason: Keep Vein Open Sterile Water (Sterile Water For Injection) Confirm Administered Dose 10 ml .ROUTE .[employer] ONE Stop: 11/12/17 20:27 Last Admin: 11/13/17 00:56 Dose: Not Given Sterile Water (Sterile Water For Injection) Confirm Administered Dose 10 ml .ROUTE .[employer] ONE Stop: 11/12/17 20:29 Last Admin: 11/13/17 00:56 Dose: Not Given
[2017-11-14] MEDS: Ibuprofen 600 MG Tab PO PRN (08:10)
== END 2017-11-14 13:00 | disposition home or self-care (01) | DRG 775 ==
LOC: JD.OBCHECK 09:06 → JD.OB 09:08 → JD.OBCHECK 09:16 → OBSVTOIN 20:56 → JD.OB 20:57
PROVIDERS: ADMIT Obstetrics & Gynecology; ATTEND Obstetrics & Gynecology
PROC: 10907ZC Drainage of Amniotic Fluid, Therapeutic from Products of Conception, Via Natural or Artificial Opening (ICD-10-PCS; principal; 2017-11-12)
PROC: 10D07Z6 Extraction of Products of Conception, Vacuum, Via Natural or Artificial Opening (ICD-10-PCS; principal; 2017-11-12)
PROC: 0UQMXZZ Repair Vulva, External Approach (ICD-10-PCS; principal; 2017-11-12)
PROC: 0KQM0ZZ Repair Perineum Muscle, Open Approach (ICD-10-PCS; principal; 2017-11-12)
PROC: 10H07YZ Insertion of Other Device into Products of Conception, Via Natural or Artificial Opening (ICD-10-PCS; principal; 2017-11-12)
PROC: 00HU33Z Insertion of Infusion Device into Spinal Canal, Percutaneous Approach (ICD-10-PCS; 2017-11-12)
PROC: 3E0R3BZ Introduction of Anesthetic Agent into Spinal Canal, Percutaneous Approach (ICD-10-PCS; 2017-11-12)
DX: O41.1230 Chorioamnionitis, third trimester, not applicable or unspecified (principal); Z37.0 Single live birth; Z3A.37 37 weeks gestation of pregnancy; Z88.1 Allergy status to other antibiotic agents; Z88.8 Allergy status to other drugs, medicaments and biological substances; Z88.0 Allergy status to penicillin; Z91.030 Bee allergy status; Z91.040 Latex allergy status; O71.82 Other specified trauma to perineum and vulva; O76 Abnormality in fetal heart rate and rhythm complicating labor and delivery; O70.1 Second degree perineal laceration during delivery
CPT/HCPCS: 36415; 51702; 59025; 59300; 59409; 85027; 85384; 85610; 85730; 86592; 86850; 86900; 86901; A9270-GY; J1580; J2590; J3010; J3370; J3490; J7030; J7050; J7120